=== PATIENT | female | born 1980 | race Caucasian/White ===

== ENCOUNTER → 2021-04-21 13:27 | Outpatient (BNVA) | payer BC, SELFPAY | PROVIDERS: PCP Pediatrics; Visit Provider Specialist | DX: G43.711 Chronic migraine without aura, intractable, with status migrainosus (principal); F17.210 Nicotine dependence, cigarettes, uncomplicated | CPT/HCPCS: 99204 ==

== ENCOUNTER → 2021-06-16 15:06 | Outpatient (BNVA) | payer BC, SELFPAY | PROVIDERS: PCP Pediatrics; Visit Provider Specialist | DX: G43.711 Chronic migraine without aura, intractable, with status migrainosus (principal); F17.200 Nicotine dependence, unspecified, uncomplicated | CPT/HCPCS: 99214 ==

== ENCOUNTER 2021-06-28 15:59 | Outpatient (CLI) | payer BC, SELFPAY ==
--- NOTE | 2021-06-28 16:06 | MR_ITS ---
WS: [id number] MRI HEAD WITHOUT CONTRAST TECHNIQUE: Sagittal T1, T2 axial, T2 axial FLAIR, axial and coronal T1 images, axial susceptibility w eighted imaging, axial diffusion weighted images, and coronal T2 images were obtained. CLINICAL INFORMATION: CHRONIC MIGRAINE WITHOUT AURA COMPARISON: None. FINDINGS: No evidence of restricted diffusion to suggest acute ischemia. Ventricular system and basal cisterns are patent. Normal posterior fossa. Normal vascular flow voids at the skull base. No extra axial flui d collections. No evidence of mass or mass effect. No hydrocephalus. Paranasal sinuses and mastoid ai r cells are well aerated. Normal posterior nasopharynx. Visualized orbits are normal. Prior postoperative changes in the cervical spine partially visualized. No hemosiderin on the suscept ibility weighted images. Normal optic chiasm and pituitary infundibulum. Temporal lobes and hippocamp al formations are normal in appearance. No suspicious intracranial signal abnormalities. No significa nt parenchymal volume loss. MR/MR head wo con* [id number] IMPRESSION: 1. No evidence of restricted diffusion to suggest acute ischemia. 2. No suspicious intracranial signal abnormalities. Normal sharma-white differen tiation. 3. Temporal lobes and hippocampal formations are normal in appearance. 4. Normal posterior fossa. 5. No hemosiderin on susceptibly weighted images. 6. Prior postoperative changes in the cervical spine partially visualized.
== END 2021-06-28 16:00 | disposition home or self-care (01) ==
PROVIDERS: PCP Pediatrics; Visit Provider Specialist
DX: G43.711 Chronic migraine without aura, intractable, with status migrainosus (principal)
CPT/HCPCS: 70551

== ENCOUNTER → 2021-09-19 15:36 | Outpatient (BNVA) | payer BC, SELFPAY | PROVIDERS: PCP Pediatrics; Visit Provider Specialist | DX: G43.711 Chronic migraine without aura, intractable, with status migrainosus (principal); F17.200 Nicotine dependence, unspecified, uncomplicated | CPT/HCPCS: 99213; 99214 ==

== ENCOUNTER → 2022-10-11 15:30 | Outpatient (BNVA) | payer BC, SELFPAY | PROVIDERS: PCP Nurse Practitioner Family; Referring Provider Nurse Practitioner Family; Visit Provider Internal Medicine | DX: E03.9 Hypothyroidism, unspecified (principal); E04.1 Nontoxic single thyroid nodule | CPT/HCPCS: 36415; 84439; 84443; 86376; 86800 ==